=== PATIENT | female | born 2000 | race Caucasian/White ===

== ENCOUNTER 2019-04-14 18:40 | Emergency (ER) | payer MEDICAID ==
[2019-04-14 18:51] VITALS: BP 139/82
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
== END 2019-04-14 20:12 | disposition home or self-care (01) ==
LOC: ER 18:40
DX: S60.211A Contusion of right wrist, initial encounter (principal); M79.644 Pain in right finger(s); V89.2XXA Person injured in unspecified motor-vehicle accident, traffic, initial encounter
CPT/HCPCS: 99283; 81025; 73130; L3908